=== PATIENT | male | born 1995 | race Caucasian/White ===

== ENCOUNTER 2022-04-13 08:36 | Emergency (ER) | payer OTHER, SELFPAY ==
[2022-04-13 08:49] VITALS: BP 146/91; PULSE 57; RESP 16; TEMP 36.3; O2SAT 100
--- NOTE | 2022-04-13 09:14 | ED.SKABFB ---
HPI - Skin/Abscess/Foreign Bdy General Chief complaint: Skin/Abscess/Foreign Body Stated complaint: spider bite Time Seen by Provider: 04/13/22 09:05 Source: patient Mode of arrival: ambulatory Limitations: no limitations History of Present Illness HPI narrative: 26-year-old male presented for complaint of red itchy warm lesion to right knee for about 12 days. He endorses a spider bite at the onset and has increased in size. He has been using hydrocortisone cream for symptoms. Denies pain or drainage. Denies any other skin lesions to the body. Denies lip, tongue, throat swelling, shortness of breath or wheezing. Denies nausea, vomiting, fatigue, fevers or chills. Related Data Allergies Allergy/AdvReac Type Severity Reaction Status Date / Time No Known Allergies Allergy Verified 04/13/22 08:42 Review of Systems Review of Systems: CONSTITUTIONAL: Denies body aches, fever, chills, or sweats. EYES: Denies visual changes, redness, or discharge. ENT: Denies rhinorrhea, congestion CARDIOVASCULAR: Denies chest pain, palpitations, or edema. RESPIRATORY: Denies cough or dyspnea. GASTROINTESTINAL: Denies abdominal pain, nausea, vomiting, or diarrhea. SKIN: red rash to right knee MUSCULOSKELETAL: Denies back pain, joint pain, or myalgia. NEUROLOGIC: Denies headache, numbness, tingling, or weakness. PMFSH Comments At time of signature, I have reviewed and agree with nursing past medical, surgical, social and family history unless otherwise noted. Please see nursing chart for further information. There is no relevant family history pertinent to the presenting complaint Exam Narrative: GENERAL: Well-appearing HEAD: Normocephalic, atraumatic. EYES: conjunctivae clear, and EOMI. ENT: Mucous membranes moist. Oropharynx without edema, erythema or lesions. NECK: Supple. No lymphadenopathy CHEST: Clear to auscultation. HEART: Regular rate and rhythm. SKIN: Warm, dry. Approx [id number] diameter erythematous flat warm patch to right medial knee, center is scaly. Pt has multiple sites to BLEs c/w folliculitis. NEURO: Alert and oriented x3. Course Course Emergency Course: Patient is aware of diagnosis, understands and agrees to treatment plan. Anticipatory guidance given. Patient agrees to follow-up as directed and is aware of reasons to seek care at the emergency department. Portions of this record may have been created with voice recognition software Level of Care: Express Care Visit Vital Signs Vital signs: Vital Signs Temperature 97.3 F L 04/13/22 08:49 Pulse Rate 57 L 04/13/22 08:49 Respiratory Rate 16 04/13/22 08:49 Blood Pressure 146/91 H 04/13/22 08:49 Pulse Oximetry 100 04/13/22 08:49 Temperature 97.3 F L 04/13/22 08:49 Pulse Rate 57 L 04/13/22 08:49 Respiratory Rate 16 04/13/22 08:49 Blood Pressure 146/91 H 04/13/22 08:49 Pulse Oximetry 100 04/13/22 08:49 Reviewed MDM - Skin/Abscess/Foreign Bdy MDM Narrative Medical decision making narrative: Advised supportive measures for allergic reaction and will treat for secondary cellulitis given symptoms and PE. Reviewed signs/symptoms to go to the ER. Pt is appropriate for outpt treatment and f/u. Instructed patient to go to nearest ER immediately for any worsening symptoms including but not limited to: fever, spreading rash, pain, sore throat, headache, dizziness, chest pain, trouble breathing, or any symptoms concerning to the patient. Differential Diagnosis Differential diagnosis: Likely abscess of skin or subcutaneous tissue, urticaria, herpes zoster, cellulitis and contact dermatitis Discharge Plan Discharge Clinical Impression: Cellulitis Patient Disposition: Home, Self-Care Condition: Stable Instructions: Antibiotic Form, Cellulitis (ED) Additional Instructions: Take the steroid and antibiotic as directed Take Benadryl every 6-8 hours as needed for itching. You can apply hydrocortisone or Benadryl cream as
== END 2022-04-13 09:22 | disposition home or self-care (01) ==
PROVIDERS: Emergency Provider Nurse Practitioner Family
DX: L03.115 Cellulitis of right lower limb (principal)
CPT/HCPCS: 99213; G0463